=== PATIENT | male | born 1950 | race Caucasian/White ===

== ENCOUNTER 2024-03-15 19:47 | Emergency (ER) | payer OTHER ==
[~2024-03-15] VITALS: Ht 167.6 cm; Wt 91.0 kg
[2024-03-15 20:59] VITALS: BP 138/72
== END 2024-03-15 21:00 | disposition home or self-care (01) ==
LOC: ED 19:47
DX: M25.511 Pain in right shoulder (principal); W18.30XA Fall on same level, unspecified, initial encounter
CPT/HCPCS: 73030